=== PATIENT | male | born 1965 | race Hispanic/Latino ===

== ENCOUNTER → 2021-02-19 | Day surgery (SDC) | payer BC, OTHER ==
[~2021-02-19] MED LIST: OMEPRAZOLE40 MG PO; PANTOPRAZOLE 40 MG 10ML VIAL ONE
[2021-02-19 11:13] VITALS: BP 108/80
== END | disposition home or self-care (01) ==
LOC: OR 06:49
PROVIDERS: ATTEND Internal Medicine Gastroenterology
DX: K29.50 Unspecified chronic gastritis without bleeding (principal); K62.1 Rectal polyp; K22.8 Other specified diseases of esophagus; K44.9 Diaphragmatic hernia without obstruction or gangrene; K57.30 Diverticulosis of large intestine without perforation or abscess without bleeding; K64.8 Other hemorrhoids; F17.210 Nicotine dependence, cigarettes, uncomplicated; Z01.810 Encounter for preprocedural cardiovascular examination; Z01.812 Encounter for preprocedural laboratory examination; Z20.822 Contact with and (suspected) exposure to COVID-19; Z86.16 Personal history of COVID-19; Z80.0 Family history of malignant neoplasm of digestive organs
CPT/HCPCS: 43239; 45384; 93005; C9113; U0002; 45378; 45385